=== PATIENT | female | born 1930 | race Caucasian/White ===

== ENCOUNTER 2019-01-23 17:44 | Inpatient (IN) | payer MEDICARE ==
[~2019-01-23] VITALS: Ht 152.4 cm; Wt 66.3 kg
--- NOTE | 2019-01-23 17:54 | NUR ---
SYNCHRONIZED CARDIOVERSION AT 150 JEWELS. WITH HR 160 AFTERWARDS
--- NOTE | 2019-01-23 17:55 | NUR ---
SECOND SYNCHRONIZED SHOCK GIVEN, 200 JEWELS. HR 178
[2019-01-23] MEDS ORDERED: LIDOCAINE-MPF 1%, 5ML ONE (17:56)
--- NOTE | 2019-01-23 18:02 | NUR ---
AFTER EJ ESTABILSHED FLUIDS INFUSING W/O. HR 150
[2019-01-23] MEDS ORDERED: CYAN100028 PO (18:30)
[2019-01-23] MEDS ORDERED: ASPI-515 PO (18:30)
[2019-01-23] MEDS ORDERED: SODIUM CHLORIDE 0.9% 1,000ML IVBOLUS ONE ×3 (18:30→22:30)
[2019-01-23] MEDS ORDERED: METO50TA82 PO (18:30)
[2019-01-23] MEDS ORDERED: ACET-1757 PO (18:30)
[2019-01-23] MEDS ORDERED: SODIUM CHLORIDE FLUSH 10ML SYR IVF ONE (18:30)
[2019-01-23] MEDS ORDERED: MULT-257 PO (18:30)
--- NOTE | 2019-01-23 18:39 | NUR ---
DR DALE AT BEDSIDE, DISCUSSION WITH FAMILY.
[2019-01-23 18:42] LABS: MEAN CORPUSCULAR HGB CONC 31.6 g/dL (32.4-35.8); MEAN CORPUSCULAR VOLUME 91.8 fL (80-100); MEAN PLATELET VOLUME 7.7 fL (7.4-10.4); PLATELET COUNT 338 x10^3/uL (130-400); RED BLOOD COUNT 3.89 x10^6/uL (3.82-5.3); RED CELL DISTRIBUTION WIDTH 19.2 % (9.6-15.2)
[2019-01-23] MEDS ORDERED: METOPROLOL 1 MG/ML, 5ML ONE ×2 (18:48→19:45)
[2019-01-23 18:53] LABS: ALANINE AMINOTRANSFERASE 14 U/L (12-78); ALBUMIN 1.8 g/dL (3.4-5.0); CALCIUM 7.5 mg/dL (8.5-10.1); CREATININE 1.15 mg/dL (0.55-1.02)
[2019-01-23 18:54] LABS: INTERNATIONAL NORMALIZED RATIO 1.29 (0.93-1.1); PROTHROMBIN TIME 13.4 Seconds (9.6-11.5)
[2019-01-23 18:58] LABS: ALKALINE PHOSPHATASE 135 U/L (45-117); BILIRUBIN,TOTAL 1.8 mg/dL (0.2-1.0); TOTAL PROTEIN 5.1 g/dL (6.4-8.2); TROPONIN I 0.036 ng/mL (0.000-0.045)
[2019-01-23] MEDS ORDERED: METOPROLOL 1 MG/ML, 5ML IVPush ONE ×2 (19:00→19:30)
--- NOTE | 2019-01-23 19:01 | NUR ---
REPORT TO DIONICIO CORTES
[2019-01-23 19:03] LABS: ANION GAP 16 mmol/L (5-15); CHLORIDE 105 mmol/L (98-107)
--- NOTE | 2019-01-23 19:05 | NUR ---
ASSUMED CARE FOR THIS PT.
--- NOTE | 2019-01-23 19:09 | NUR ---
LAB TO BEDSIDE FOR BCX2
[2019-01-23 19:11] LABS: MD YES
[2019-01-23 19:13] LABS: ANISOCYTOSIS 1+; BAND#(MANUAL) 1.15 x10^3/uL; BANDS%(MANUAL) 8 % (0-7); LYMPH#(MANUAL) 0.86 x10^3/uL (1-3.4); LYMPHS% (MANUAL) 6 % (22-44); MONOS#(MANUAL) 0.14 x10^3/uL (0.3-2.7); MONOS% (MANUAL) 1 % (2-9); SEG#(MANUAL) 12.24 x10^3/uL (1.8-6.8); SEGS% (MANUAL) 85 % (42-75)
[2019-01-23 19:14] LABS: <PLATELET ESTIMATE> ADEQUATE; HYPOCHROMIA 1+; LARGE PLATELETS 1+; POLYCHROMASIA 1+
[2019-01-23] MEDS ORDERED: CEFTRIAXONE PMX 1GM/50ML 50 ML IV ONE (19:30)
[2019-01-23] MEDS ORDERED: CEFTRIAXONE PMX 1GM/50ML 50 ML ONE (19:45)
[2019-01-23] MEDS ORDERED: SODIUM CHLORIDE 0.9% 1,000 ML IV ONE (20:00)
--- NOTE | 2019-01-23 20:09 | NUR ---
PT MOVED TO ROOM 14 REPORT GIVEN VSS REMAINS WITH HR AT 120 TO 150. FAMILY AT BEDSIDE.
[2019-01-23] MEDS ORDERED: VANCOMYCIN PMX 1GM/200ML 200 ML IV ONE (20:30)
[2019-01-23] MEDS ORDERED: VANCOMYCIN PER PHARMACY MC PRN (20:30)
--- NOTE | 2019-01-23 20:33 | NUR ---
URINE TO LAB PT TOLERATED PROCEDURE WELL
[2019-01-23] MEDS ORDERED: DILTIAZEM 125 MG in SODIUM CHLORIDE 0.9% 100 ML IV SCH (20:47)
[2019-01-23] MEDS ORDERED: DILTIAZEM 5 MG/ML, 5ML ONE ×2 (20:50→21:12)
[2019-01-23 20:53] LABS: CULTURE INDICATED? YES; MICROSCOPIC INDICATED
[2019-01-23] MEDS ORDERED: DILTIAZEM 5 MG/ML, 5ML IV ONE (21:00)
[2019-01-23] MEDS ORDERED: DILTIAZEM 5 MG/ML, 5ML IVPush ONE (21:30)
[2019-01-23] MEDS ORDERED: AMIODARONE 900 MG in DEXTROSE 5% 482 ML IV PRN (21:33)
[2019-01-23] MEDS ORDERED: AMIODARONE 150 MG in DEXTROSE 5% 100 ML IV ONE (21:33)
--- NOTE | 2019-01-23 21:35 | NUR ---
PT DIFFICULT IV STICK. SECOND IV PLACED. DILT PUSH 10MG X 2 WITH UNCHANGED HEART RATE. PT NOW COMPLAINING OF ABD PAIN. PT RESTLESS. MD TO BEDSIDE. PT TO HAVE ABD CT PRIOR TO ADMIT. RR INCREASING NOW UP TO THE 40S. 99 3LPM.
[2019-01-23] MEDS ORDERED: DIGOXIN 0.25 MG/ML, 2ML IVPush ONE (22:00)
--- NOTE | 2019-01-23 22:23 | NUR ---
REPORT CALLED TO FLOOR AND PT READY TO GO
[2019-01-23] MEDS ORDERED: ONDANSETRON 2MG/ML, 2ML IVPB PRN (22:30)
[2019-01-23] MEDS ORDERED: PHARMACY MAY ADJ FOR RENAL FX MC PRN (22:30)
[2019-01-23] MEDS ORDERED: SODIUM CHLORIDE 0.9%, 500ML IVBOLUS PRN ×2 (22:30)
[2019-01-23] MEDS ORDERED: ACETAMINOPHEN 650 MG SUPP PR PRN (22:30)
[2019-01-23] MEDS: SODIUM CHLORIDE 0.9% 1,000 ML IV SCH (23:08)
[2019-01-23 23:09] LABS: TROPONIN I 0.058 ng/mL (0.000-0.045)
[2019-01-23] MEDS ORDERED: OMNIPAQUE 350 MG/ML, 100ML BOTTLE ONE (23:25)
[2019-01-23] MEDS: METOPROLOL TARTRATE 50 MG TABLET PO SCH (23:33)
[2019-01-23] MEDS: HEPARIN 5,000 UNITS/ML, 1ML SQ SCH (23:34)
[2019-01-23] MEDS ORDERED: LORazepam 2 MG/ML, 1ML ONE (23:45)
[2019-01-24] VITALS: BP 129/66
[2019-01-24] MEDS ORDERED: LORazepam 2 MG/ML, 1ML IVPush ONE
[2019-01-24 00:04] LABS: HEMOGLOBIN A1C 5.1 % (4.2-6.3)
[2019-01-24 01:58] LABS: TROPONIN I 0.077 ng/mL (0.000-0.045)
[2019-01-24] MEDS ORDERED: AMIODARONE 150 MG in DEXTROSE 5% 100 ML IV ONE (02:00)
[2019-01-24] MEDS ORDERED: FILTER 0.22 MICRON IV PRN (02:00)
[2019-01-24] MEDS: AMIODARONE 900 MG in DEXTROSE 5% 482 ML IV PRN (02:00)
[2019-01-24] MEDS ORDERED: LIDOCAINE 2% 100MG/5ML SYRINGE ONE (04:12)
[2019-01-24] MEDS: SODIUM CHLORIDE 0.9% 1,000 ML IV SCH ×3 (04:56→20:13)
[2019-01-24] MEDS: PIPERACILLIN/TAZO/PMX 3.375GM 50 ML IV SCH ×4 (05:01→20:08)
[2019-01-24 05:28] LABS: ALANINE AMINOTRANSFERASE 14 U/L (12-78); ALBUMIN 1.7 g/dL (3.4-5.0); ANION GAP 12 mmol/L (5-15); CHLORIDE 108 mmol/L (98-107); CREATININE 0.86 mg/dL (0.55-1.02)
[2019-01-24 05:33] LABS: ALKALINE PHOSPHATASE 126 U/L (45-117); BILIRUBIN,TOTAL 1.4 mg/dL (0.2-1.0); TROPONIN I 0.101 ng/mL (0.000-0.045)
[2019-01-24 05:46] LABS: MEAN CORPUSCULAR HGB CONC 31.5 g/dL (32.4-35.8); MEAN CORPUSCULAR VOLUME 92.1 fL (80-100); MEAN PLATELET VOLUME 8.3 fL (7.4-10.4); PLATELET COUNT 344 x10^3/uL (130-400); RED BLOOD COUNT 3.98 x10^6/uL (3.82-5.3); RED CELL DISTRIBUTION WIDTH 18.5 % (9.6-15.2)
[2019-01-24 06:19] LABS: MD YES
[2019-01-24 06:24] LABS: ANISOCYTOSIS 1+; BANDS%(MANUAL) 31 % (0-7); LYMPH#(MANUAL) 0.58 x10^3/uL (1-3.4); LYMPHS% (MANUAL) 4 % (22-44); MONOS#(MANUAL) 0.87 x10^3/uL (0.3-2.7); MONOS% (MANUAL) 6 % (2-9); SEG#(MANUAL) 8.56 x10^3/uL (1.8-6.8); SEGS% (MANUAL) 59 % (42-75)
[2019-01-24 06:25] LABS: <PLATELET ESTIMATE> ADEQUATE; <PLT MORPHOLOGY> NORMAL PLT MORPH; POLYCHROMASIA 1+
[2019-01-24 06:32] LABS: OVALOCYTES 1+
[2019-01-24] MEDS: HEPARIN 5,000 UNITS/ML, 1ML SQ SCH ×2 (06:48→15:09)
[2019-01-24] MEDS ORDERED: POTASSIUM CHLORIDE 40 MEQ in SODIUM CHLORIDE 0.9% 500 ML IV ONE (07:30)
[2019-01-24] MEDS ORDERED: SODIUM CHLORIDE 0.9% 1,000 ML IV SCH ×2 (08:00→22:15)
[2019-01-24] MEDS: ALBUMIN HUMAN 25% 100 ML IV SCH ×2 (09:52→17:07)
[2019-01-24] MEDS: ASPIRIN 81 MG TABLET EC PO SCH (14:41)
[2019-01-24] MEDS: MULTIVITAMIN 1 TABLET PO SCH (14:41)
[2019-01-24] MEDS: CYANOCOBALAMIN 1,000 MCG TABLET PO SCH (14:41)
[2019-01-24] MEDS: METOPROLOL TARTRATE 50 MG TABLET PO SCH ×2 (14:51→21:00)
[2019-01-24] MEDS: LINEZOLID PMX 600MG/300ML 300 ML IV SCH (14:53)
[2019-01-24] MEDS ORDERED: BISACODYL 10 MG SUPP ONE (15:14)
[2019-01-24] MEDS ORDERED: BISACODYL 10 MG SUPP PR ONE (15:30)
[2019-01-24] MEDS: SENNA/DOCUSATE TABLET PO SCH (21:00)
[2019-01-25] MEDS: HEPARIN 5,000 UNITS/ML, 1ML SQ SCH ×3 (00:53→16:57)
[2019-01-25] MEDS: ALBUMIN HUMAN 25% 100 ML IV SCH (01:29)
[2019-01-25] MEDS: AMIODARONE 900 MG in DEXTROSE 5% 482 ML IV PRN (01:30)
[2019-01-25] MEDS: PIPERACILLIN/TAZO/PMX 3.375GM 50 ML IV SCH ×4 (01:30→20:51)
[2019-01-25] MEDS: LINEZOLID PMX 600MG/300ML 300 ML IV SCH ×3 (03:02→16:56)
[2019-01-25 03:04] LABS: TROPONIN I 0.117 ng/mL (0.000-0.045)
[2019-01-25 05:08] LABS: ALBUMIN 2.9 g/dL (3.4-5.0); ANION GAP 11 mmol/L (5-15); CALCIUM 7.6 mg/dL (8.5-10.1); CHLORIDE 109 mmol/L (98-107)
[2019-01-25 05:09] LABS: MEAN CORPUSCULAR HEMOGLOBIN 29.5 pg (27.0-34.8); MEAN CORPUSCULAR HGB CONC 32.1 g/dL (32.4-35.8); MEAN CORPUSCULAR VOLUME 91.9 fL (80-100); PLATELET COUNT 230 x10^3/uL (130-400); RED BLOOD COUNT 2.92 x10^6/uL (3.82-5.3); RED CELL DISTRIBUTION WIDTH 19.6 % (9.6-15.2)
[2019-01-25 05:12] LABS: ALANINE AMINOTRANSFERASE 18 U/L (12-78); ALKALINE PHOSPHATASE 72 U/L (45-117); BILIRUBIN,TOTAL 1.4 mg/dL (0.2-1.0); TOTAL PROTEIN 5.1 g/dL (6.4-8.2)
[2019-01-25 05:43] LABS: MD YES
[2019-01-25 05:48] LABS: BAND#(MANUAL) 5.38 x10^3/uL; BANDS%(MANUAL) 33 % (0-7); LYMPH#(MANUAL) 0.82 x10^3/uL (1-3.4); LYMPHS% (MANUAL) 5 % (22-44); MONOS#(MANUAL) 0.33 x10^3/uL (0.3-2.7); MONOS% (MANUAL) 2 % (2-9); SEG#(MANUAL) 9.78 x10^3/uL (1.8-6.8); SEGS% (MANUAL) 60 % (42-75)
[2019-01-25 05:49] LABS: <PLATELET ESTIMATE> ADEQUATE; <PLT MORPHOLOGY> NORMAL PLT MORPH; ANISOCYTOSIS 1+; OVALOCYTES 1+; POLYCHROMASIA 1+
[2019-01-25] MEDS: ASPIRIN 81 MG TABLET EC PO SCH (09:00)
[2019-01-25] MEDS: SENNA/DOCUSATE TABLET PO SCH ×2 (09:00→20:46)
[2019-01-25] MEDS: METOPROLOL TARTRATE 50 MG TABLET PO SCH ×2 (09:00→21:00)
[2019-01-25] MEDS: BISACODYL 10 MG SUPP PR SCH (09:00)
[2019-01-25] MEDS: MULTIVITAMIN 1 TABLET PO SCH (09:00)
[2019-01-25] MEDS: CYANOCOBALAMIN 1,000 MCG TABLET PO SCH (09:00)
[2019-01-25 16:29] VITALS: BP 99/69
[2019-01-25 19:13] VITALS: BP 100/69
[2019-01-25] MEDS: SODIUM CHLORIDE 0.9% 1,000 ML IV SCH (20:51)
[2019-01-26 00:24] VITALS: BP 109/75
[2019-01-26] MEDS: HEPARIN 5,000 UNITS/ML, 1ML SQ SCH ×3 (01:15→17:00)
[2019-01-26] MEDS: PIPERACILLIN/TAZO/PMX 3.375GM 50 ML IV SCH ×4 (03:04→19:44)
[2019-01-26] MEDS: LINEZOLID PMX 600MG/300ML 300 ML IV SCH ×2 (04:47→17:25)
[2019-01-26 05:22] LABS: MEAN CORPUSCULAR HEMOGLOBIN 28.7 pg (27.0-34.8); MEAN CORPUSCULAR HGB CONC 31.1 g/dL (32.4-35.8); MEAN CORPUSCULAR VOLUME 92.2 fL (80-100); MEAN PLATELET VOLUME 8.1 fL (7.4-10.4); PLATELET COUNT 207 x10^3/uL (130-400); RED BLOOD COUNT 2.88 x10^6/uL (3.82-5.3); RED CELL DISTRIBUTION WIDTH 19.1 % (9.6-15.2)
[2019-01-26 05:34] LABS: CALCIUM 7.7 mg/dL (8.5-10.1); CHLORIDE 107 mmol/L (98-107)
[2019-01-26 05:38] LABS: ANION GAP 12 mmol/L (5-15)
[2019-01-26 06:03] LABS: MD YES
[2019-01-26 06:05] LABS: BANDS%(MANUAL) 12 % (0-7); LYMPH#(MANUAL) 1.17 x10^3/uL (1-3.4); LYMPHS% (MANUAL) 7 % (22-44); MONOS#(MANUAL) 0.84 x10^3/uL (0.3-2.7); MONOS% (MANUAL) 5 % (2-9); SEG#(MANUAL) 12.69 x10^3/uL (1.8-6.8); SEGS% (MANUAL) 76 % (42-75)
[2019-01-26 06:06] LABS: ANISOCYTOSIS 1+; OVALOCYTES 1+; POLYCHROMASIA 1+
[2019-01-26 06:07] LABS: <PLATELET ESTIMATE> ADEQUATE; <PLT MORPHOLOGY> NORMAL PLT MORPH
[2019-01-26 07:32] VITALS: BP 161/96
[2019-01-26 07:53] VITALS: BP 93/64
[2019-01-26] MEDS: BISACODYL 10 MG SUPP PR SCH (09:00)
[2019-01-26] MEDS: SENNA/DOCUSATE TABLET PO SCH ×2 (09:00→19:23)
[2019-01-26] MEDS: POTASSIUM CHLORIDE 20 MEQ TAB.ER.PRT PO SCH ×2 (09:44→17:24)
--- NOTE | 2019-01-26 12:19 | NUR ---
REC THEE/VAISHALI W/ 1:1 FEEDING ASSISTANCE AND SPOON USE ONLY; swallow precautions sheet posted at bedside Addendum: 01/26/19 at [address] Amended: Links added.
[2019-01-26 13:07] VITALS: BP 114/64
[2019-01-26] MEDS: ASPIRIN 81 MG TABLET EC PO SCH (14:26)
[2019-01-26] MEDS: METOPROLOL TARTRATE 50 MG TABLET PO SCH ×2 (14:26→19:44)
[2019-01-26] MEDS: CYANOCOBALAMIN 1,000 MCG TABLET PO SCH (14:27)
[2019-01-26] MEDS: MULTIVITAMIN 1 TABLET PO SCH (14:27)
[2019-01-26] MEDS: SODIUM CHLORIDE 0.9% 1,000 ML IV SCH (15:31)
[2019-01-26 18:39] VITALS: BP 107/61
[2019-01-27 00:01] VITALS: BP 104/71
[2019-01-27] MEDS: HEPARIN 5,000 UNITS/ML, 1ML SQ SCH ×2 (00:45→10:09)
[2019-01-27] MEDS: PIPERACILLIN/TAZO/PMX 3.375GM 50 ML IV SCH ×2 (01:41→08:32)
[2019-01-27] MEDS: LINEZOLID PMX 600MG/300ML 300 ML IV SCH (04:37)
[2019-01-27 05:01] LABS: MEAN CORPUSCULAR HEMOGLOBIN 28.6 pg (27.0-34.8); MEAN CORPUSCULAR HGB CONC 31.6 g/dL (32.4-35.8); MEAN CORPUSCULAR VOLUME 90.6 fL (80-100); MEAN PLATELET VOLUME 7.4 fL (7.4-10.4); PLATELET COUNT 212 x10^3/uL (130-400); RED BLOOD COUNT 3.02 x10^6/uL (3.82-5.3); RED CELL DISTRIBUTION WIDTH 19.6 % (9.6-15.2)
[2019-01-27 05:09] LABS: ANION GAP 9 mmol/L (5-15); CALCIUM 7.9 mg/dL (8.5-10.1); CHLORIDE 114 mmol/L (98-107); CREATININE 0.78 mg/dL (0.55-1.02)
[2019-01-27 05:43] LABS: MD YES
[2019-01-27 05:48] LABS: ANISOCYTOSIS 1+; BAND#(MANUAL) 0.27 x10^3/uL; BANDS%(MANUAL) 2 % (0-7); LYMPH#(MANUAL) 1.34 x10^3/uL (1-3.4); LYMPHS% (MANUAL) 10 % (22-44); METAMYELOCYTES# (MANUAL) 0.13 x10^3/uL (0-0); METAMYELOCYTES% (MANUAL) 1 % (0-1); MONOS#(MANUAL) 0.13 x10^3/uL (0.3-2.7); MONOS% (MANUAL) 1 % (2-9); MYELOCYTES# (MANUAL) 0.13 x10^3/uL (0-0); MYELOCYTES% (MANUAL) 1 % (0-0); POLYCHROMASIA 1+; SEG#(MANUAL) 11.39 x10^3/uL (1.8-6.8); SEGS% (MANUAL) 85 % (42-75)
[2019-01-27 05:49] LABS: <PLATELET ESTIMATE> ADEQUATE; <PLT MORPHOLOGY> NORMAL PLT MORPH
[2019-01-27 05:51] LABS: TOXIC GRAN 1+
[2019-01-27] MEDS ORDERED: CIPR500T87 PO (06:33)
[2019-01-27 07:50] VITALS: BP 106/71
[2019-01-27] MEDS ORDERED: POTASSIUM CHLORIDE 20 MEQ TAB.ER.PRT PO SCH (08:00)
[2019-01-27] MEDS: SENNA/DOCUSATE TABLET PO SCH (09:00)
[2019-01-27] MEDS: BISACODYL 10 MG SUPP PR SCH (09:00)
[2019-01-27] MEDS: ASPIRIN 81 MG TABLET EC PO SCH (09:00)
[2019-01-27] MEDS: METOPROLOL TARTRATE 50 MG TABLET PO SCH (09:00)
[2019-01-27] MEDS: CYANOCOBALAMIN 1,000 MCG TABLET PO SCH (09:00)
[2019-01-27] MEDS: MULTIVITAMIN 1 TABLET PO SCH (09:00)
[2019-01-27 12:55] VITALS: BP 118/75
== END 2019-01-27 13:06 | disposition hospice, home (50) | DRG 871 ==
LOC: ED 20:55 → EDIP 20:59 → CSU 22:57 → 4WST 01-25 14:30
PROVIDERS: ADMIT Internal Medicine; ATTEND Internal Medicine
PROC: 0T9B70Z Drainage of Bladder with Drainage Device, Via Natural or Artificial Opening (ICD-10-PCS; 2019-01-23)
PROC: 5A2204Z Restoration of Cardiac Rhythm, Single (ICD-10-PCS; principal; 2019-01-24)
PROC: 02H633Z Insertion of Infusion Device into Right Atrium, Percutaneous Approach (ICD-10-PCS; 2019-01-24)
PROC: B244ZZZ Ultrasonography of Right Heart (ICD-10-PCS; 2019-01-24)
DX: A41.9 Sepsis, unspecified organism (principal); G93.41 Metabolic encephalopathy; K56.49 Other impaction of intestine; K57.92 Diverticulitis of intestine, part unspecified, without perforation or abscess without bleeding; E87.4 Mixed disorder of acid-base balance; N12 Tubulo-interstitial nephritis, not specified as acute or chronic; N17.9 Acute kidney failure, unspecified; N30.80 Other cystitis without hematuria; F02.80 Dementia in other diseases classified elsewhere, unspecified severity, without behavioral disturbance, psychotic disturbance, mood disturbance, and anxiety; G30.9 Alzheimer's disease, unspecified; D64.9 Anemia, unspecified; I48.2 Chronic atrial fibrillation; R09.02 Hypoxemia; E87.6 Hypokalemia; R65.20 Severe sepsis without septic shock; Z88.2 Allergy status to sulfonamides; Z88.8 Allergy status to other drugs, medicaments and biological substances; Z79.82 Long term (current) use of aspirin
CPT/HCPCS: 36415; 36600; 71045; 74177; 80048; 80053; 81001; 82803; 83036; 83605; 83735; 83880; 84132; 84145; 84484; 85025; 85610; 85730; 86304; 87040; 87077; 87081; 87086; 87186; 93005; 99291; 99292; G0378; J0696; J1644; J2020; J2543; J3370; J3480; P9047; Q9967; J0282; J1160; J2060; J7030; J7040; J7060